=== PATIENT | female | born 1980 | race Two or more races ===

== ENCOUNTER → 2018-08-10 16:28 | Outpatient (CLI) | payer SELFPAY ==
--- NOTE | 2018-08-10 13:10 | FLU_PTH ---
PATIENT: BEBETO BORJA LOC: [facility] U#:[id number] AGE/SX: 44/F ROOM: RE08/10/[address]: Dr. Damaris Josue MD : 1980 BED: DIS: SPEC #: [id number] RECD: 08/10/18 16:22 STATUS: BLAS LATA #: [id number] DEVYN: 08/10/18 13:[address]: Damaris Josue DEPT: CYTOLOGY RECD BY: Solitario Moura Tissues: A - Thyroid gland, NOS B - Thyroid gland, NOS Procedures: Special Stain Group II Surgery Specimen Level IV Cytospin Fluid Cytology Other HEADER OPERATION: Ultrasound-guided fine needle aspiration left thyroid PRE-OP DIAGNOSIS: Thyroid nodule TISSUE SUBMITTED: A - FNA left thyroid fluid for cytology, B - FNA left thyroid slides x6 DIAGNOSIS CYTOLOGY A. Left thyroid fluid for cytology, FNA (cytospin and cell block): Negative for malignant cells. See cytology study and comment. B. Left thyroid nodule, FNA (smears): Consistent with benign colloid nodule. Adequate for evaluation. See cytology study and comment. SJ:rg 08/14/18 COMMENT Correlation with clinical, radiologic findings and appropriate follow up are necessary. CYTOLOGY STUDY Slides are reviewed. A. The specimen consists of blood only. Follicular cells are not seen. B. The specimen consists of benign follicular cells and colloid. CYTOLOGY GROSS A - Received is 60 ml of red cloudy fluid labeled with the patient's name and and designated per the requisition as left thyroid. Submitted for cytology preparation including cell block. B - Received are six smears labeled with the patient's name and designated per the requisition as left thyroid. Submitted for staining. 08/13/18 TC:5 CPT: 76212, 87593, [id number]
== END ==
PROVIDERS: Referring Provider Surgery; Visit Provider Surgery
DX: E04.1 Nontoxic single thyroid nodule (principal)
CPT/HCPCS: 88108; 88161; 88305; 88313